=== PATIENT | male | born 1985 | race Hispanic/Latino ===

== ENCOUNTER → 2016-09-04 | Outpatient (REF) | payer OTHER | LOC: M SMT 12:37 | PROVIDERS: ATTEND Nurse Practitioner Women's Health | DX: R39.11 Hesitancy of micturition (principal) | CPT/HCPCS: 81001; 87086; G0463 ==

== ENCOUNTER 2017-02-12 10:18 | Day surgery (SDC) | payer OTHER ==
[~2017-02-12] VITALS: Ht 172.7 cm; Wt 73.5 kg
[~2017-02-12 10:18] MED LIST: FLOM5CAP PO
[2017-02-12] MEDS ORDERED: LR 1,000 ML IV SCH ×2 (10:30→13:15)
[2017-02-12] MEDS ORDERED: BUPIVACAINE/EPIN 0.25% 30 ML VIAL As Ordered ONE (10:46)
[2017-02-12] MEDS ORDERED: LIDOCAINE 2% INJ 100 MG/5 ML SDV (FOR ANES.) As Ordered ONE (12:21)
[2017-02-12] MEDS ORDERED: GLYCOPYRROLATE INJ 0.2 MG/ML 2 ML VIAL As Ordered ONE (12:21)
[2017-02-12] MEDS ORDERED: MIDAZOLAM INJ 2 MG/2 ML VIAL (J2250) As Ordered ONE (12:21)
[2017-02-12] MEDS ORDERED: KETOROLAC 60 MG/2 ML VIAL (J1885) As Ordered ONE (12:21)
[2017-02-12] MEDS ORDERED: ROCURONIUM BROMIDE 50 MG/5 ML VIAL/SYRINGE As Ordered ONE (12:21)
[2017-02-12] MEDS ORDERED: PROPOFOL 200 MG/20 ML VIAL As Ordered ONE (12:21)
[2017-02-12] MEDS ORDERED: NEOSTIGMINE 10 MG/10 ML VIAL (J2710) As Ordered ONE (12:21)
[2017-02-12] MEDS ORDERED: ONDANSETRON 4MG/2ML VIAL (J2405) As Ordered ONE (12:21)
[2017-02-12] MEDS ORDERED: dexameTHASONE 4 MG/ML 1ML VIAL (J1100) As Ordered ONE (12:21)
[2017-02-12] MEDS ORDERED: fentaNYL 250 MCG/5 ML INJECTION (J3010) As Ordered ONE (12:21)
[2017-02-12] MEDS ORDERED: PERCOCET 5MG/325MG TAB As Ordered ONE (12:55)
[2017-02-12] MEDS ORDERED: fentaNYL 100 MCG/2 ML INJECTION (J3010) As Ordered ONE (12:55)
[2017-02-12] MEDS: fentaNYL 100 MCG/2 ML INJECTION (J3010) IV PRN ×4 (12:58→13:15)
[2017-02-12] MEDS: PERCOCET 5MG/325MG TAB PO PRN ×2 (13:12→13:44)
[2017-02-12] MEDS ORDERED: ONDANSETRON 4MG/2ML VIAL (J2405) IV PRN (13:15)
[2017-02-12] MEDS ORDERED: NORCO, ANEXSIA 5/325MG TABLET (HYDROcodone/ACETAMINOPHEN) PO PRN (13:15)
[2017-02-12 14:31] VITALS: BP 109/75
--- NOTE | 2017-02-13 13:22 | RO ---
DATE OF PROCEDURE: 02/12/2017 PREOPERATIVE DIAGNOSIS: Left inguinal hernia. POSTOPERATIVE DIAGNOSIS: Left inguinal hernia. PROCEDURE: Robotic assisted left inguinal hernia repair. SURGEON: Dr. Tylor Dumas MOLD POLISHER: Sofia Joe NP ANESTHESIA: General. ESTIMATED BLOOD LOSS: 5. COMPLICATIONS: None. INDICATIONS FOR PROCEDURE: The patient is a 31-year-old male who presents with left groin pain and found to have an inguinal hernia. Recommendation is to proceed with robotic assisted, possible open repair. The risks and benefits of the procedure not limited to, but including bleeding, infection, hernia formation, hernia recurrence, damage to surrounding structures and need for further surgery were discussed in detail with the patient and informed consent was obtained and the procedure was planned. DESCRIPTION OF PROCEDURE: The patient brought back to the operating room seven after sufficient sedation and the abdomen was sterilely prepped and draped and a Garrison catheter was placed. Next, a time out was done to confirm proper patient and proper procedure. Following that, an 8 mm supraumbilical incision was made. Veress needle was used to gain access to the abdomen and insufflated to 15 mmHg. The Veress needle was then removed. A 5 mm Optiview port was used to gain access to the abdomen. The 8 mm robotic ports were then placed in the left and right mid abdomen. The 5 mm Optiview por was then removed and replaced with an 8 mm robotic camera port. The patient was placed in Trendelenburg position and the robot was docked. The peritoneum was then incised over the left inguinal canal. Preperitoneal space was dissected free using a combination of blunt and sharp dissection. Once this was completed, the cord structures were carefully dissected free from the hernia sac and the pocket was able to be created. Once the hernia had been completely reduced, a Bard 3DMax light medium mesh was placed in the preperitoneal space and sutured to the pubic symphysis with a #2-0 Vicryl suture. The peritoneum was then closed with a running #2-0 V-Loc. The abdomen was then desufflated and the skin incisions closed with #4-0 Vicryl subcuticular sutures. The abdomen was cleaned and dried. Steri-Strips, 4x4 and tape were applied, thus ending the procedure.
== END 2017-02-12 15:05 | disposition home or self-care (01) ==
LOC: M SDC 10:18
PROVIDERS: ATTEND Surgery
DX: K40.90 Unilateral inguinal hernia, without obstruction or gangrene, not specified as recurrent (principal); N40.0 Benign prostatic hyperplasia without lower urinary tract symptoms
CPT/HCPCS: 49650; C1781; J0690; J1100; J1885; J2250; J2405; J2710; J3010